=== PATIENT | female | born 1985 | race Hispanic/Latino ===

== ENCOUNTER 2016-10-29 12:38 | Emergency (ER) | payer MEDICAID ==
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
[2016-10-29 13:30] LABS: RBC URINE 13 /hpf (0-3); URINE BACTERIA RARE (<OCC); URINE BILIRUBIN NEGATIVE (NEGATIVE); URINE BLOOD NEGATIVE (NEGATIVE); URINE COLOR Amber (YELLOW); URINE GLUCOSE (UA) NORMAL (Normal); URINE KETONE 1+ mg/dL (NEGATIVE); URINE LEUKOCYTE ESTERASE 3+ Leu/uL (Negative); URINE PROTEIN 1+ mg/dL (NEGATIVE); WBC URINE 53 /hpf (0-5)
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
[2016-10-29 15:22] VITALS: BP 110/66; PULSE 87; RESP 18; TEMP 98.3; O2SAT 98
== END 2016-10-29 15:40 | disposition home or self-care (01) ==
LOC: C.ER 12:38 → MERGE 12:38 → C.ER 15:40
DX: S52.121A Displaced fracture of head of right radius, initial encounter for closed fracture (principal); W17.89XA Other fall from one level to another, initial encounter; Y93.89 Activity, other specified; Y92.89 Other specified places as the place of occurrence of the external cause; F32.9 Major depressive disorder, single episode, unspecified

== ENCOUNTER 2016-10-29 19:11 | Emergency (ER) | payer MEDICAID ==
[2016-10-29 19:19] VITALS: BP 110/73; PULSE 94; RESP 16; TEMP 97.6; O2SAT 98
--- NOTE | 2016-10-29 20:05 | C.PDOC ---
History Of Present Illness 30 y/o female presents to ED with cc of right elbow pain; pt reports injury to elbow one week ago, seen in [facility] [place] ED earlier for same; xray showed right minimally displaced radial head fracture. pt had splint applied during this visit but removed it after discharge. now here in ED for replacement splint. Pt sts she was frustrated with splint, and thus took it off. no new injuries. Time Seen by Provider: 10/29/16 19:25 Chief Complaint (Nursing): Upper Extremity Problem/Injury History Per: Patient History/Exam Limitations: no limitations Current Symptoms Are (Timing): Still Present Quality: Sharp Severity: Moderate Exacerbating Factor(s): Movement Recent travel outside of the [place]: No Past Medical History Reviewed: Historical Data, Nursing Documentation, Vital Signs Vital Signs: Last Vital Signs Temp 97.6 F 10/29/16 19:16 Pulse 94 H 10/29/16 19:16 Resp 16 10/29/16 19:16 BP 110/73 10/29/16 19:16 Pulse Ox 98 10/29/16 20:09 - Medical History PMH: Fractures (RIGHT ELBOW) Denies: Diabetes, Hepatitis, HIV, HTN, Chronic Kidney Disease, Seizures, Sexually Transmitted Disease Family History: States: Unknown Family Hx - Social History Hx Alcohol Use: No Hx Substance Use: No (4 MONTH STOPPED USING) - Immunization History Hx Tetanus Toxoid Vaccination: No Hx Influenza Vaccination: No Hx Pneumococcal Vaccination: No Review Of Systems Constitutional: Negative for: Fever, Chills Musculoskeletal: Positive for: Arm Pain (right elbow) Skin: Negative for: Rash Neurological: Negative for: Weakness, Numbness Physical Exam - Physical Exam Appears: Non-toxic, No Acute Distress Skin: Warm, Dry Head: Atraumatic, Normacephalic Extremity: No Normal ROM (dec rom of right arm at elbow due to pain. ), Tenderness (right elbow) Extremity: Right: [place] Tenderness (rt elbow), Bilateral: Normal Color And Temperature Pulses: Left Radial: Normal, Right Radial: Normal Neurological/Psych: Oriented x3, Normal Speech, Normal Cognition, Normal Sensation ED Course And Treatment O2 Sat by Pulse Oximetry: 98 Orthopedic Time Performed: 07:45 Time Out: Side verified Procedure: Splint Type: Short, Posterior Location: Right Consent obtained: Verbal Performed by: Mid-level Provider (done by cp, checked by me) Diagnosis: Fracture Type: Closed, Minimally displaced Location: Right Bone: Radius Capillary refill: Normal Distal Sensation: Normal Distal Motor Function: Normal Capillary Refill: Normal Compartment: Soft Distal Sensation: Normal Distal Motor Function: Normal Patient tolerated procedure: Well Disposition Counseled Patient/Family Regarding: Diagnosis, Need For Followup - Disposition Referrals: Amira Rand MD [Staff Provider] - Disposition: HOME/ ROUTINE Disposition Time: 20:05 Condition: STABLE Additional Instructions: Keep splint on until seen with orthopedics. Call on Monday to make an appointment. Take ibuprofen for pain if needed. Forms: [email or web address] (Bengali), General Discharge Instructions - Clinical Impression Clinical Impression: Radial head fracture
== END 2016-10-29 20:11 | disposition home or self-care (01) ==
LOC: C.ER 19:11 → MERGE 19:11 → C.ER 20:11
DX: S52.121D Displaced fracture of head of right radius, subsequent encounter for closed fracture with routine healing (principal); W17.89XD Other fall from one level to another, subsequent encounter